=== PATIENT | male | born 1995 | race Caucasian/White ===

== ENCOUNTER 2019-02-11 06:43 | Emergency (ER) | payer OTHER ==
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
[2019-02-11] MEDS ORDERED: IBUPROFEN 600 MG TAB PO ONE (08:30)
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
[2019-02-11 09:12] VITALS: BP 145/84
== END 2019-02-11 09:14 | disposition home or self-care (01) ==
LOC: M ED 06:43
DX: S09.90XA Unspecified injury of head, initial encounter (principal); S13.9XXA Sprain of joints and ligaments of unspecified parts of neck, initial encounter; S80.01XA Contusion of right knee, initial encounter; S80.11XA Contusion of right lower leg, initial encounter; S29.001A Unspecified injury of muscle and tendon of front wall of thorax, initial encounter; V48.0XXA Car driver injured in noncollision transport accident in nontraffic accident, initial encounter; Y92.9 Unspecified place or not applicable; Y93.84 Activity, sleeping; Y99.9 Unspecified external cause status